=== PATIENT | female | born 1975 | race African-American/Black ===

== ENCOUNTER 2018-04-05 10:04 | Inpatient (IN) | payer OTHER ==
[2018-04-05 10:32] VITALS: BMI 22.6
--- NOTE | 2018-04-05 10:38 | HP ---
CIWA Score - CIWA Score Nausea/Vomitin Muscle Tremors: 2 Anxiety: 2 Agitation: 2 Paroxysmal Sweats: No Perspiration Orientation: 0-Oriented Tacttile Disturbances: 1-Very Mild Itch/Numbness Auditory Disturbances: 1-Very Mild Visual Disturbances: 1-Very Mild Sensitivity Headache: 2-Mild CIWA-Ar Total Score: 13 Admission ROS BHS - HPI Chief Complaint: i need help to stop drinking alcohol,cocaine and marijuana Allergies/Adverse Reactions: Allergies Allergy/AdvReac Type Severity Reaction Status Date / Time aspirin Allergy Severe Rash Verified 04/05/18 10:25 orange juice [Viborg Juice] AdvReac Mild Vomiting Verified 04/05/18 10:25 oranges AdvReac Mild Vomiting Uncoded 04/05/18 10:25 History of Present Illness: this 42 years old female with alcohol,cocaine and marijuana dependence,seeking detox,withdrawal symptom,last detox [facility] 12/20/17 to 12/22/17 multiple admissions in detox but keep relapsing weight loss bipolar disorder asthma nicotine dependence bipolar disorder longest period of sobriety 8 years Exam Limitations: No Limitations - Ebola screening Have you traveled outside of the country in the last 21 days: No (N) Have you had contact with anyone from an Ebola affected area: No Do you have a fever: No - Review of Systems Constitutional: Loss of Appetite, Malaise, Night Sweats, Changes in sleep, Weakness, Unintentional Wgt. Loss EENT: reports: Nose Congestion Respiratory: reports: No Symptoms reported Cardiac: reports: No Symptoms Reported GI: reports: Nausea, Poor Appetite, Abdominal cramping : reports: No Symptoms Reported Musculoskeletal: reports: Back Pain, Muscle Pain Integumentary: reports: Dryness Neuro: reports: Headache, Tremors Endocrine: reports: No Symptoms Reported Hematology: reports: No Symptoms Reported Psychiatric: reports: No Sypmtoms Reported, Judgement Intact, Mood/Affect Appropiate, Orientated x3, Anxious (insomnia) Patient History - Patient Medical History Hx Anemia: No Hx Asthma: Yes Hx Chronic Obstructive Pulmonary Disease (COPD): No Hx Cancer: No Hx Cardiac Disorders: No Hx Congestive Heart Failure: No Hx Hypertension: No Hx Hypercholesterolemia: No Hx Pacemaker: No HX Cerebrovascular Accident: Yes (old cva at age of 17 years,AND ANOTHER AT 18 Y /O) Hx Seizures: No Hx Dementia: No Hx Diabetes: No Hx Gastrointestinal Disorders: No Hx Liver Disease: No Hx Genitourinary Disorders: No Hx Sexually Transmitted Disorders: No Hx Renal Disease (ESRD): No Hx Thyroid Disease: No Hx Human Immunodeficiency Virus (HIV): No Hx Hepatitis C: No Hx Depression: Yes Hx Suicide Attempt: No Hx Bipolar Disorder: Yes Hx Schizophrenia: No Other Medical History: no suicidal,no homicidal - Patient Surgical History Past Surgical History: Yes Hx Neurologic Surgery: No Hx Cataract Extraction: No Hx Cardiac Surgery: No Hx Lung Surgery: No Hx Breast Surgery: No Hx Breast Biopsy: No Hx Abdominal Surgery: Yes (right inguinal hernia repair at age of 17 years) Hx Appendectomy: No Hx Cholecystectomy: No Hx Genitourinary Surgery: No Hx Section: No Hx Orthopedic Surgery: No Other Surgical History: r INGUINAL HERNIA REPAIR IN 1993 Anesthesia Reaction: No - PPD History Previous Implant?: Yes Documented Results: Negative w/proof Implanted On Prior [facility] Admission?: Yes Date: 12/22/17 Results: 0 mm PPD to be Administered?: No - Reproductive History Patient is a Female of Child Bearing Age (11 -55 yrs old): Yes Last Menstrual Period: 03/19/18 Patient : No - Smoking Cessation Smoking history: Current every day smoker Have you smoked in the past 12 months: Yes Aproximately how many cigarettes per day: 10 Cigars Per Day: 0 Hx Chewing Tobacco Use: No Initiated information on smoking cessation: Yes 'Breaking Loose' booklet given: 04/05/18 - Substance & Tx. History Hx Alcohol Use: Yes Hx Substance Use: Yes Substance Use Type: Alcohol, Cocaine, Marijuana Hx Substance Use Treatment: Yes ([facility] 12/20/17 to 12/22/17) - Substances Abused Crack Route: Smoking Frequency: 3-6 times per week Amount used: $200 Age of first use: 31 Date of Last Use: 04/05/18 Alcohol-vodka/beer Route: Oral Frequency: Daily Amount used: 3-4 pts./2-6 pks. Age of first use: 12 Date of Last Use: 04/05/18 Marijuana Route: Smoking Frequency: 1-2 times per week Amount used: 1/2 joint Age of first use: 12 Date of Last Use: 03/29/18 Family Disease History - Family Disease History Family Disease History: Diabetes: Mother (alcohol,HTN,BREAST,[place]), Heart Disease : Mother, CA: Father (dsa), Mother, Other: Father, Mother, Brother (dsa) Admission Physical Exam S - Vital Signs Vital Signs: Vital Signs Temperature 97.8 F 04/05/18 10:28 Pulse Rate 88 04/05/18 10:28 Respiratory Rate 17 04/05/18 10:28 Blood Pressure 112/62 04/05/18 10:28 O2 Sat by Pulse Oximetry (%) - Physical General Appearance: Yes: Moderate Distress, Tremorous, Irritable, Sweating, Anxious HEENTM: Yes: CURT, Pharynx Normal Respiratory: Yes: Lungs Clear, Normal Breath Sounds, No Respiratory Distress Neck: Yes: Within Normal Limits, Supple, Trachea in good position Breast: Yes: Within Normal Limits Cardiology: Yes: Within Normal Limits, Regular Rhythm, Regular Rate, S1, S2 Abdominal: Yes: Within Normal Limits, Normal Bowel Sounds, Non Tender, Flat, Soft Genitourinary: Yes: Within Normal Limits Back: Yes: Muscle Spasm Musculoskeletal: Yes: full range of Motion, Back pain, Muscle Pain Extremities: Yes: Tremors Neurological: Yes: manager of distribution II-XII NML intact, Fully Oriented, Alert, Motor Strength 5/5 Integumentary: Yes: Dry Lymphatic: Yes: Within Normal Limits - Diagnostic (1) Alcohol dependence with uncomplicated withdrawal Current Visit: No Status: Acute (2) Weight decreased Current Visit: No Status: Acute (3) Asthma Current Visit: No Status: Chronic (4) Bipolar disorder Current Visit: No Status: Chronic Qualifiers: Active/Remission status: remission status unspecified Qualified Code(s): F31.9 - Bipolar disorder, unspecified (5) Cannabis abuse Current Visit: No Status: Chronic (6) Cocaine dependence Current Visit: No Status: Chronic (7) Nicotine dependence Current Visit: No Status: Chronic Qualifiers: Nicotine product type: cigarettes Substance use status: uncomplicated Qualified Code(s): F17.210 - Nicotine dependence, cigarettes, uncomplicated (8) Dehydration Current Visit: Yes Status: Acute Cleared for Admission [facility] - Detox or Rehab [facility] Level of Care: Medically Managed Detox Regimen/Protocol: Librium BHS Breath Alcohol Content Breath Alcohol Content: 0
[2018-04-05] MEDS ORDERED: ACETAMINOPHEN 325 MG TABLET (FP) PO PRN (10:54)
[2018-04-05] MEDS ORDERED: chlordiazePOXIDE HCL 25 MG CAPSULE PO PRN (10:54)
[2018-04-05] MEDS ORDERED: NICOTINE POLACRILEX 2 MG GUM BUC PRN (10:54)
[2018-04-05] MEDS ORDERED: guaiFENesin/D-METHORPHAN HB 10 ML UNIT-DOSE CUPS PO PRN (10:54)
[2018-04-05] MEDS ORDERED: MAGNESIUM HYDROX 2400MG/30ML ORAL SUSPENSION 30 ML CUP PO PRN (10:54)
[2018-04-05] MEDS ORDERED: IBUPROFEN 400 MG TABLET (FP) PO PRN (10:54)
[2018-04-05] MEDS ORDERED: MAG HYDROX/AL HYDROX/SIMETH 30 ML UNIT-DOSE CUP PO PRN (10:54)
[2018-04-05] MEDS ORDERED: P-EPHED 60MG/TRIPROLIDI 2.5MG TABLET PO PRN (10:54)
[2018-04-05] MEDS ORDERED: MAGNESIUM CITRATE 300 ML BOTTLE PO PRN (10:54)
[2018-04-05] MEDS ORDERED: LOPERAMIDE HCL 2 MG CAPSULE PO PRN (10:54)
[2018-04-05] MEDS ORDERED: hydrOXYzine PAMOATE 25 MG CAPSULE (FP) PO PRN (10:54)
[2018-04-05] MEDS ORDERED: MENTHOL/PHENOL 1 EACH UD MM PRN (10:54)
[2018-04-05] MEDS ORDERED: ALBUTEROL SO4 8 GM HFA INHALER IH PRN (11:01)
--- NOTE | 2018-04-05 13:39 | CONSULT ---
[facility] Psychiatric Consult - Data Date of interview: 04/05/18 Admission source: [facility] Identifying data: This is a 42 years old female with alcohol,cocaine and marijuana dependence,seeking detox,reporting withdrawal symptoms,last detox [facility] 12/20/17 to 12/22/17. Patient reports history of Bipolar Disorder, history of [facility] psychiatric hospitalizations as well. Denies suicidal, homicidal history. Substance Abuse History: - Smoking Cessation. Smoking history: Current every day smoker. Have you smoked in the past 12 months: Yes. Aproximately how many cigarettes per day: 10. Cigars Per Day: 0. Hx Chewing Tobacco Use: No. Initiated information on smoking cessation: Yes. 'Breaking Loose' booklet given : 04/05/18. - Substance & Tx. History. Hx Alcohol Use: Yes. Hx Substance Use : Yes. Substance Use Type: Alcohol, Cocaine, Marijuana. Hx Substance Use Treatment: Yes ([facility] 12/20/17 to 12/22/17) Medical History: Weight loss history, Asthma Psychiatric History: Patient reports history of Bipolar Disorder with most recent psychiatric admission on 2011, currently stable on: Risperdal 2mg po bid. Seroquel 50mg po qhs. Denies suicidal, homicidal history Physical/Sexual Abuse/Trauma History: Denies Additional Comment: Risperdal 2mg po bid. Seroquel 50mg po qhs Mental Status Exam - Mental Status Exam Alert and Oriented to: Person Cognitive Function: Fair Patient Appearance: Unkempt Mood: Anxious, Irritable Affect: Labile Patient Behavior: Talkative, Cooperative Speech Pattern: Excessive Voice Loudness: Mildly Loud Thought Process: Goal Oriented Thought Disorder: Being Controlled Hallucinations: Denies Suicidal Ideation: Denies Homicidal Ideation: Denies Insight/Judgement: Fair Sleep: Difficulty falling asleep Appetite: Weight loss Muscle strength/Tone: Normal, Mild Hypertonicity Gait/Station: Normal Additional Comments: Risperdal 2mg po bid. Seroquel 50mg po qhs Psychiatric Findings - Problem List ([place] 1, 2,3) (1) anxiety and depression Current Visit: No Status: Active (2) Drug-induced mood disorder Current Visit: No Status: Acute (3) Weight decreased Current Visit: No Status: Acute (4) Asthma Current Visit: No Status: Chronic (5) Bipolar disorder Current Visit: No Status: Chronic Qualifiers: Active/Remission status: remission status unspecified Qualified Code(s): F31.9 - Bipolar disorder, unspecified (6) Cannabis abuse Current Visit: No Status: Chronic - Initial Treatment Plan Initial Treatment Plan: Risperdal 2mg po bid. Seroquel 50mg po qhs
[2018-04-05] MEDS: chlordiazePOXIDE HCL 25 MG CAPSULE PO SCH ×2 (17:56→22:52)
[2018-04-05 18:22] LABS: URINE APPEARANCE CLOUDY; URINE BILIRUBIN NEGATIVE (<2.0 mg/dL); URINE COLOR YELLOW; URINE GLUCOSE (UA) NEGATIVE (NEGATIVE); URINE KETONE NEGATIVE (NEGATIVE); URINE LEUK ESTERASE 3+ (NEGATIVE); URINE NITRITE NEGATIVE (NEGATIVE); URINE PROTEIN 1+ (NEGATIVE)
[2018-04-05 18:39] LABS: EPI CELLS FEW /HPF (FEW); URINE BACTERIA RARE /hpf (NONE SEEN); URINE MUCUS RARE
[2018-04-05] MEDS ORDERED: MELATONIN 5 MG TABLETS PO PRN (22:00)
[2018-04-05] MEDS: THIAMINE HCL 100 MG TABLET (FP) PO SCH (22:53)
[2018-04-06] MEDS: chlordiazePOXIDE HCL 25 MG CAPSULE PO SCH ×4 (05:45→22:12)
[2018-04-06] MEDS ORDERED: PRENATAL VITAMINS W/ FOLIC ACID TABLET (FP) PO SCH (10:00)
[2018-04-06 10:11] LABS: HEMATOCRIT 26.2 % (32.4-45.2); MCH 22.7 pg (25.7-33.7); MCHC 30.6 g/dl (32.0-36.0); MEAN CELL VOLUME 74.1 fl (80-96); MEAN PLT VOLUME 8.6 fl (7.5-11.1); PLATELET COUNT 388 K/MM3 (134-434); RBC 3.53 M/mm3 (3.60-5.2); RDW 19.5 % (11.6-15.6); WHITE BLOOD COUNT 5.8 K/mm3 (4.0-10.0)
[2018-04-06 10:14] LABS: ALK PHOS 73 U/L (45-117); ANION GAP 4 MMOL/L (8-16); BILIRUBIN,TOTAL 0.2 mg/dL (0.2-1); BLOOD UREA NITROGEN 10 mg/dL (7-18); CALCIUM 8.2 mg/dL (8.5-10.1); CHLORIDE 109 mmol/L (98-107); CO2 29 mmol/L (21-32); CREATININE 0.8 mg/dL (0.55-1.3); GLUCOSE,RANDOM 75 mg/dL (74-106); POTASSIUM 4.2 mmol/L (3.5-5.1); SGOT/AST 27 U/L (15-37); SGPT/ALT 15 U/L (13-61); SODIUM 142 mmol/L (136-145); TOT PROT 7.2 g/dl (6.4-8.2)
--- NOTE | 2018-04-06 12:37 | PN ---
[facility] CIWA - CIWA Score Nausea/Vomitin-No Nausea/No Vomiting Muscle Tremors: 3 Anxiety: 3 Agitation: 3 Paroxysmal Sweats: 3 Orientation: 0-Oriented Tacttile Disturbances: 0-None Auditory Disturbances: 0-None Visual Disturbances: 0-None Headache: 0-None Present CIWA-Ar Total Score: 12 S Progress Note (SOAP) Subjective: irritable agitation anxiety body aches Objective: 04/06/18 12:36 Vital Signs Temperature 98.8 F 04/06/18 10:00 Pulse Rate 108 H 04/06/18 10:00 Respiratory Rate 16 04/06/18 10:00 Blood Pressure 140/67 04/06/18 10:00 O2 Sat by Pulse Oximetry (%) Laboratory Tests 04/05/18 04/06/18 04/06/18 15:45 06:00 06:00 WBC 5.8 RBC 3.53 L Hgb 8.0 L Hct 26.2 L MCV 74.1 L MCH 22.7 L MCHC 30.6 L RDW 19.5 H Plt Count 388 MPV 8.6 Sodium 142 Potassium 4.2 Chloride 109 H Carbon Dioxide 29 Anion Gap 4 L BUN 10 Creatinine 0.8 Creat Clearance w eGFR > 60 Random Glucose 75 Calcium 8.2 L Total Bilirubin 0.2 AST 27 ALT 15 Alkaline Phosphatase 73 Total Protein 7.2 Albumin 3.0 L Urine Color Yellow Urine Appearance Cloudy Urine pH 6.0 Ur Specific [place] 1.019 Urine Protein 1+ H Urine Glucose (UA) Negative Urine Ketones Negative Urine Blood 1+ H Urine Nitrite Negative Urine Bilirubin Negative Urine Urobilinogen 2.0 H Ur Leukocyte Esterase 3+ H Urine WBC (Auto) 309 Urine RBC (Auto) 12 Ur Epithelial Cells Few Urine Bacteria Rare Urine Mucus Rare RPR Titer 04/06/18 06:00 WBC RBC Hgb Hct MCV MCH MCHC RDW Plt Count MPV Sodium Potassium Chloride Carbon Dioxide Anion Gap BUN Creatinine Creat Clearance w eGFR Random Glucose Calcium Total Bilirubin AST ALT Alkaline Phosphatase Total Protein Albumin Urine Color Urine Appearance Urine pH Ur Specific [place] Urine Protein Urine Glucose (UA) Urine Ketones Urine Blood Urine Nitrite Urine Bilirubin Urine Urobilinogen Ur Leukocyte Esterase Urine WBC (Auto) Urine RBC (Auto) Ur Epithelial Cells Urine Bacteria Urine Mucus RPR Titer Nonreactive low H:H; iron supplement repeat labs repeat u/a pt denies of any s/s of urinary problems Assessment: 04/06/18 12:37 withdrawal sx Plan: continue detox increase fluids f/u repeated labs
--- NOTE | 2018-04-06 17:34 | DS ---
[facility] Detox Discharge Summary Admission Date: 04/05/18 Discharge Date: 04/06/18 - History Present History: Alcohol Dependence - Physical Exam Results Vital Signs: Vital Signs Temperature 98.0 F 04/06/18 15:50 Pulse Rate 86 04/06/18 15:50 Respiratory Rate 18 04/06/18 15:50 Blood Pressure 117/51 L 04/06/18 15:50 O2 Sat by Pulse Oximetry (%) Pertinent Admission Physical Exam Findings: Laboratory Tests 04/05/18 04/06/18 04/06/18 15:45 06:00 06:00 WBC 5.8 RBC 3.53 L Hgb 8.0 L Hct 26.2 L MCV 74.1 L MCH 22.7 L MCHC 30.6 L RDW 19.5 H Plt Count 388 MPV 8.6 Sodium 142 Potassium 4.2 Chloride 109 H Carbon Dioxide 29 Anion Gap 4 L BUN 10 Creatinine 0.8 Creat Clearance w eGFR > 60 Random Glucose 75 Calcium 8.2 L Total Bilirubin 0.2 AST 27 ALT 15 Alkaline Phosphatase 73 Total Protein 7.2 Albumin 3.0 L Urine Color Yellow Urine Appearance Cloudy Urine pH 6.0 Ur Specific [place] 1.019 Urine Protein 1+ H Urine Glucose (UA) Negative Urine Ketones Negative Urine Blood 1+ H Urine Nitrite Negative Urine Bilirubin Negative Urine Urobilinogen 2.0 H Ur Leukocyte Esterase 3+ H Urine WBC (Auto) 309 Urine RBC (Auto) 12 Ur Epithelial Cells Few Urine Bacteria Rare Urine Mucus Rare RPR Titer 04/06/18 06:00 WBC RBC Hgb Hct MCV MCH MCHC RDW Plt Count MPV Sodium Potassium Chloride Carbon Dioxide Anion Gap BUN Creatinine Creat Clearance w eGFR Random Glucose Calcium Total Bilirubin AST ALT Alkaline Phosphatase Total Protein Albumin Urine Color Urine Appearance Urine pH Ur Specific [place] Urine Protein Urine Glucose (UA) Urine Ketones Urine Blood Urine Nitrite Urine Bilirubin Urine Urobilinogen Ur Leukocyte Esterase Urine WBC (Auto) Urine RBC (Auto) Ur Epithelial Cells Urine Bacteria Urine Mucus RPR Titer Nonreactive - Medication Discharge Medications: Ambulatory Orders Albuterol Sulfate Inhaler - [Ventolin HFA Inhaler -] 2 inh IH Q4H 09/01/12 Quetiapine Fumarate [Seroquel -] 50 mg PO HS 12/20/17 Risperidone [Risperdal -] 2 mg PO BID #60 tablet 12/21/17
[2018-04-06] MEDS: FERROUS SO4 325 MG TABLET (FP) PO SCH (22:12)
[2018-04-06] MEDS: THIAMINE HCL 100 MG TABLET (FP) PO SCH (22:14)
[2018-04-07] MEDS: chlordiazePOXIDE HCL 25 MG CAPSULE PO SCH (06:04)
[2018-04-07] MEDS: FERROUS SO4 325 MG TABLET (FP) PO SCH (08:06)
[2018-04-07 10:58] VITALS: BP 148/68; PULSE 62; TEMP 97
[2018-04-07 11:09] LABS: ALBUMIN 2.6 g/dl (3.4-5.0); ALK PHOS 80 U/L (45-117); ANION GAP 7 MMOL/L (8-16); BILIRUBIN,TOTAL 0.4 mg/dL (0.2-1); BLOOD UREA NITROGEN 10 mg/dL (7-18); CALCIUM 8.2 mg/dL (8.5-10.1); CHLORIDE 105 mmol/L (98-107); CO2 26 mmol/L (21-32); CREATININE 0.6 mg/dL (0.55-1.3); GLUCOSE,RANDOM 82 mg/dL (74-106); POTASSIUM 4.5 mmol/L (3.5-5.1); SGOT/AST 17 U/L (15-37); SGPT/ALT 13 U/L (13-61); SODIUM 139 mmol/L (136-145); TOT PROT 6.5 g/dl (6.4-8.2)
[2018-04-07 11:12] LABS: BASO % 0.7 % (0-2.0); EOS % 2.8 % (0-4.5); HEMATOCRIT 27.3 % (32.4-45.2); HEMOGLOBIN 8.4 GM/dL (10.7-15.3); LYMPH % 21.9 % (8-40); MCH 22.7 pg (25.7-33.7); MCHC 30.8 g/dl (32.0-36.0); MEAN CELL VOLUME 73.7 fl (80-96); MEAN PLT VOLUME 8.4 fl (7.5-11.1); MONO % 8.3 % (3.8-10.2); NEUT % 66.3 % (42.8-82.8); PLATELET COUNT 330 K/MM3 (134-434); RDW 19.4 % (11.6-15.6); WHITE BLOOD COUNT 4.7 K/mm3 (4.0-10.0)
--- NOTE | 2018-04-07 16:06 | PN ---
S Progress Note Note: Vital Signs Temperature 97.0 F L 04/07/18 10:57 Pulse Rate 62 04/07/18 10:57 Respiratory Rate 16 04/07/18 10:57 Blood Pressure 148/68 04/07/18 10:57 O2 Sat by Pulse Oximetry (%) Patient very disruptive in the unit, agitated, loud, threatening, and refuse to follow unit rules. No suicidal / homicidal ideation. Patient was administratively discharge. Follow up with ED if worsening symptoms are present.
--- NOTE | 2018-04-07 16:08 | DS ---
[facility] Detox Discharge Summary Admission Date: 04/05/18 Discharge Date: 04/07/18 - History Present History: Alcohol Dependence Additional Comments: Patient admistratively discharge. No SI/HI ideation. Follow up with referrals and if worsening symptoms patient to follow up with the ED. Pertinent Past History: Vital Signs Temperature 97.0 F L 04/07/18 10:57 Pulse Rate 62 04/07/18 10:57 Respiratory Rate 16 04/07/18 10:57 Blood Pressure 148/68 04/07/18 10:57 O2 Sat by Pulse Oximetry (%) Laboratory Last Values WBC 4.7 K/mm3 (4.0-10.0) 04/07/18 08:00 RBC 3.70 M/mm3 (3.60-5.2) 04/07/18 08:00 Hgb 8.4 GM/dL (10.7-15.3) L 04/07/18 08:00 Hct 27.3 % (32.4-45.2) L 04/07/18 08:00 MCV 73.7 fl (80-96) L 04/07/18 08:00 MCH 22.7 pg (25.7-33.7) L 04/07/18 08:00 MCHC 30.8 g/dl (32.0-36.0) L 04/07/18 08:00 RDW 19.4 % (11.6-15.6) H 04/07/18 08:00 Plt Count 330 K/MM3 (134-434) 04/07/18 08:00 MPV 8.4 fl (7.5-11.1) 04/07/18 08:00 Absolute Neuts (auto) 3.1 K/mm3 (1.5-8.0) 04/07/18 08:00 Neutrophils % 66.3 % (42.8-82.8) 04/07/18 08:00 Lymphocytes % 21.9 % (8-40) 04/07/18 08:00 Monocytes % 8.3 % (3.8-10.2) 04/07/18 08:00 Eosinophils % 2.8 % (0-4.5) 04/07/18 08:00 Basophils % 0.7 % (0-2.0) 04/07/18 08:00 Nucleated RBC % 0 % (0-0) 04/07/18 08:00 Sodium 139 mmol/L (136-145) 04/07/18 08:00 Potassium 4.5 mmol/L (3.5-5.1) 04/07/18 08:00 Chloride 105 mmol/L (98-107) 04/07/18 08:00 Carbon Dioxide 26 mmol/L (21-32) 04/07/18 08:00 Anion Gap 7 MMOL/L (8-16) L 04/07/18 08:00 BUN 10 mg/dL (7-18) 04/07/18 08:00 Creatinine 0.6 mg/dL (0.55-1.3) 04/07/18 08:00 Creat Clearance w eGFR > 60 (>60) 04/07/18 08:00 Random Glucose 82 mg/dL (74-106) 04/07/18 08:00 Calcium 8.2 mg/dL (8.5-10.1) L 04/07/18 08:00 Total Bilirubin 0.4 mg/dL (0.2-1) 04/07/18 08:00 AST 17 U/L (15-37) 04/07/18 08:00 ALT 13 U/L (13-61) 04/07/18 08:00 Alkaline Phosphatase 80 U/L (45-117) 04/07/18 08:00 Total Protein 6.5 g/dl (6.4-8.2) 04/07/18 08:00 Albumin 2.6 g/dl (3.4-5.0) L 04/07/18 08:00 Urine Color Yellow 04/05/18 15:45 Urine Appearance Cloudy 04/05/18 15:45 Urine pH 6.0 (5.0-8.0) 04/05/18 15:45 Ur Specific [place] 1.019 (1.010-1.035) 04/05/18 15:45 Urine Protein 1+ (NEGATIVE) H 04/05/18 15:45 Urine Glucose (UA) Negative (NEGATIVE) 04/05/18 15:45 Urine Ketones Negative (NEGATIVE) 04/05/18 15:45 Urine Blood 1+ (NEGATIVE) H 04/05/18 15:45 Urine Nitrite Negative (NEGATIVE) 04/05/18 15:45 Urine Bilirubin Negative (<2.0 mg/dL) 04/05/18 15:45 Urine Urobilinogen 2.0 mg/dL (0.2-1.0) H 04/05/18 15:45 Ur Leukocyte Esterase 3+ (NEGATIVE) H 04/05/18 15:45 Urine WBC (Auto) 309 /hpf (3-5) 04/05/18 15:45 Urine RBC (Auto) 12 /hpf (0-3) 04/05/18 15:45 Ur Epithelial Cells Few /HPF (FEW) 04/05/18 15:45 Urine Bacteria Rare /hpf (NONE SEEN) 04/05/18 15:45 Urine Mucus Rare 04/05/18 15:45 RPR Titer Nonreactive (NONREACTIVE) 04/06/18 06:00 - Physical Exam Results Vital Signs: Vital Signs Temperature 97.0 F L 04/07/18 10:57 Pulse Rate 62 04/07/18 10:57 Respiratory Rate 16 04/07/18 10:57 Blood Pressure 148/68 04/07/18 10:57 O2 Sat by Pulse Oximetry (%) - Medication Discharge Medications: Ambulatory Orders Albuterol Sulfate Inhaler - [Ventolin HFA Inhaler -] 2 inh IH Q4H 09/01/12 Quetiapine Fumarate [Seroquel -] 50 mg PO HS 12/20/17 Risperidone [Risperdal -] 2 mg PO BID #60 tablet 12/21/17 - Diagnosis (1) Alcohol dependence with uncomplicated withdrawal Status: Acute (2) Asthma Status: Chronic (3) Cannabis abuse Status: Chronic (4) Cocaine dependence Status: Chronic (5) Nicotine dependence Status: Chronic Qualifiers: Nicotine product type: cigarettes Substance use status: uncomplicated Qualified Code(s): F17.210 - Nicotine dependence, cigarettes, uncomplicated
[2018-04-07] MEDS ORDERED: chlordiazePOXIDE 5 MG CAPSULE PO SCH (17:00)
[2018-04-08] MEDS ORDERED: chlordiazePOXIDE HCL 10 MG CAPSULE PO SCH (17:00)
== END 2018-04-07 09:55 | disposition left against medical advice (07) | DRG 774 ==
LOC: YASAS 10:04 → Y6N 11:34
PROC: HZ2ZZZZ Detoxification Services for Substance Abuse Treatment (ICD-10-PCS; principal; 2018-04-05)
DX: F10.230 Alcohol dependence with withdrawal, uncomplicated (principal); F14.20 Cocaine dependence, uncomplicated; F12.10 Cannabis abuse, uncomplicated; F17.210 Nicotine dependence, cigarettes, uncomplicated; F31.9 Bipolar disorder, unspecified; F19.24 Other psychoactive substance dependence with psychoactive substance-induced mood disorder; F41.8 Other specified anxiety disorders; E86.0 Dehydration; R63.4 Abnormal weight loss; Z68.22 Body mass index [BMI] 22.0-22.9, adult; Z86.73 Personal history of transient ischemic attack (TIA), and cerebral infarction without residual deficits; F91.8 Other conduct disorders; Z91.19 Patient's noncompliance with other medical treatment and regimen
CPT/HCPCS: 36415; 80053; 81003; 81015; 85025; 85027; 86593

== ENCOUNTER 2021-05-14 11:36 | Inpatient (IN) | payer OTHER ==
[2021-05-14] MEDS ORDERED: MENTHOL/PHENOL 1 EACH UD MM PRN (16:02)
[2021-05-14] MEDS ORDERED: METHOCARBAMOL 500 MG TABLET PO PRN (16:02)
[2021-05-14] MEDS ORDERED: ONDANSETRON *ODT* 4 MG TABLET SL PRN (16:02)
[2021-05-14] MEDS ORDERED: MAGNESIUM CITRATE 300 ML BOTTLE PO PRN (16:02)
[2021-05-14] MEDS ORDERED: ACETAMINOPHEN 325 MG TABLET (FP) PO PRN (16:02)
[2021-05-14] MEDS ORDERED: MAGNESIUM HYDROX 2400MG/30ML ORAL SUSPENSION 30 ML CUP PO PRN (16:02)
[2021-05-14] MEDS ORDERED: BISMUTH SUBSALICYLATE 524 MG/30 ML PO PRN (16:02)
[2021-05-14] MEDS ORDERED: MAG HYDROX/AL HYDROX/SIMETH 30 ML UNIT-DOSE CUP PO PRN (16:02)
[2021-05-14] MEDS ORDERED: NICOTINE 10 MG CARTRIDGE (INHALER) IH PRN (16:02)
[2021-05-14] MEDS ORDERED: ALBUTEROL SO4 HFA INHALER IH PRN (17:55)
[2021-05-14] MEDS: THIAMINE HCL 100 MG TABLET (FP) PO SCH (22:32)
[2021-05-14] MEDS: hydrOXYzine PAMOATE 25 MG CAPSULE (FP) PO SCH ×2 (22:33→22:34)
[2021-05-14] MEDS: MELATONIN 5 MG TABLETS PO SCH (22:34)
[2021-05-15] MEDS: hydrOXYzine PAMOATE 25 MG CAPSULE (FP) PO SCH ×5 (05:59→22:24)
[2021-05-15] MEDS: NICOTINE 14 MG/24 HOURS TOPICAL PATCH TD SCH (10:43)
[2021-05-15] MEDS: PRENATAL VITAMINS W/ FOLIC ACID TABLET (FP) PO SCH (10:45)
[2021-05-15] MEDS: ACETAMINOPHEN 325 MG TABLET (FP) PO PRN (10:45)
[2021-05-15 13:44] LABS: HEMATOCRIT 38.8 % (32.4-45.2); HEMOGLOBIN 12.9 GM/dL (10.7-15.3); MCH 29.8 pg (25.7-33.7); MCHC 33.1 g/dl (32.0-36.0); MEAN PLT VOLUME 10.9 fl (7.5-11.1); PLATELET COUNT 229 10^3/uL (134-434); RBC 4.31 M/mm3 (3.60-5.2); RDW 15.7 % (11.6-15.6); WHITE BLOOD COUNT 6.8 K/mm3 (4.0-10.0)
[2021-05-15 14:01] LABS: ALBUMIN 3.2 g/dl (3.4-5.0); BLOOD UREA NITROGEN 11.2 mg/dL (7-18); CALCIUM 8.7 mg/dL (8.5-10.1)
[2021-05-15 14:02] LABS: BILIRUBIN,TOTAL 0.3 mg/dL (0.2-1); TOT PROT 7.2 g/dl (6.4-8.2)
[2021-05-15 14:04] LABS: CREATININE 0.9 mg/dL (0.55-1.3)
[2021-05-15 16:42] LABS: HIV INTERPRETATION PRESUMPTIVE POSITIVE (NEGATIVE)
[2021-05-15] MEDS: MELATONIN 5 MG TABLETS PO SCH (22:23)
[2021-05-15] MEDS: THIAMINE HCL 100 MG TABLET (FP) PO SCH (22:23)
[2021-05-16 01:57] LABS: CHOLESTEROL 155 mg/dL (50-200); HDL CHOLESTEROL 70 mg/dL (40-60); LDL CHOLESTEROL (ONLY DFH) 63 mg/dl (5-100); TRIGLYCERIDES 110 mg/dL (0-150)
[2021-05-16] MEDS: hydrOXYzine PAMOATE 25 MG CAPSULE (FP) PO SCH ×2 (06:06→10:45)
[2021-05-16] MEDS: NICOTINE 14 MG/24 HOURS TOPICAL PATCH TD SCH (10:45)
[2021-05-16] MEDS: PRENATAL VITAMINS W/ FOLIC ACID TABLET (FP) PO SCH (10:45)
[2021-05-16] MEDS: ACETAMINOPHEN 325 MG TABLET (FP) PO PRN (14:12)
[2021-05-16 14:29] VITALS: BP 113/67; PULSE 118; TEMP 97.1
== END 2021-05-16 14:50 | disposition home or self-care (01) | DRG 774 ==
LOC: YASAS 11:36 → UNDOADMIN 18:16 → Y6N 18:16 → UNDODISIN 05-16 14:50
PROVIDERS: ADMIT Allergy & Immunology; ATTEND Allergy & Immunology
PROC: HZ2ZZZZ Detoxification Services for Substance Abuse Treatment (ICD-10-PCS; principal; 2021-05-14)
DX: F10.230 Alcohol dependence with withdrawal, uncomplicated (principal); F14.20 Cocaine dependence, uncomplicated; F12.20 Cannabis dependence, uncomplicated; F17.210 Nicotine dependence, cigarettes, uncomplicated; F19.24 Other psychoactive substance dependence with psychoactive substance-induced mood disorder; F31.9 Bipolar disorder, unspecified; Z21 Asymptomatic human immunodeficiency virus [HIV] infection status; I10 Essential (primary) hypertension; J45.909 Unspecified asthma, uncomplicated; R63.4 Abnormal weight loss; Z68.23 Body mass index [BMI] 23.0-23.9, adult; I69.854 Hemiplegia and hemiparesis following other cerebrovascular disease affecting left non-dominant side; Z63.4 Disappearance and death of family member; Z56.0 Unemployment, unspecified; Z59.01 Sheltered homelessness
CPT/HCPCS: 36415; 80053; 80061; 81025; 85027; 86593; 86780; 87389; C9803; U0003; U0005